=== PATIENT | male | born 1980 | race Caucasian/White ===

== ENCOUNTER 2018-11-02 15:51 | Outpatient (CLI) | payer OTHER ==
[2018-11-02] MEDS ORDERED: None per pt (16:07)
== END 2018-11-02 23:59 | disposition home or self-care (01) ==
LOC: STAR 15:51
PROVIDERS: ATTEND Orthopaedic Surgery
DX: Z02.9 Encounter for administrative examinations, unspecified (principal)

== ENCOUNTER 2018-11-08 12:28 | Day surgery (SDC) | payer OTHER ==
[2018-11-02 15:54] VITALS: BP 126/83
[~2018-11-08] VITALS: Ht 182.9 cm; Wt 77.9 kg
[~2018-11-08 12:28] MED LIST: LIDOCAINE 1%-EPI 1:100K, 20ML ONE; None per pt; ROPIvacaine/PF 0.5%, 30 ML ONE
[2018-11-08] MEDS ORDERED: TRIAMCINOLONE ACETONIDE 40 MG/ML, 1ML ONE (12:56)
[2018-11-08] MEDS ORDERED: LACTATED RINGERS 1,000 ML IV SCH (12:56)
[2018-11-08] MEDS ORDERED: MIDAZOLAM 1 MG/ML, 2ML ONE (13:18)
[2018-11-08] MEDS ORDERED: FENTANYL PF 250 MCG/5ML ONE (13:19)
[2018-11-08] MEDS ORDERED: ACETAMINOPHEN 500 MG TABLET PO ONE (13:30)
[2018-11-08] MEDS ORDERED: GABAPENTIN 300 MG CAPSULE PO ONE (13:30)
[2018-11-08] MEDS ORDERED: PROMETHAZINE 25 MG/ML, 1ML IV PRN (14:00)
[2018-11-08] MEDS ORDERED: MEPERIDINE/PF 25MG/0.5ML IVPush PRN (14:00)
[2018-11-08] MEDS ORDERED: OXYcodone 5 MG/5 ML ORAL.SOL UDC PO PRN (14:00)
[2018-11-08] MEDS ORDERED: ONDANSETRON ODT 8 MG PO PRN (14:00)
[2018-11-08] MEDS ORDERED: LORazepam 2 MG/ML, 1ML IVPush PRN (14:00)
[2018-11-08] MEDS ORDERED: ONDANSETRON 2MG/ML, 2ML IV PRN (14:00)
[2018-11-08] MEDS ORDERED: PROPOFOL 10 MG/ML, 20ML ONE (14:22)
[2018-11-08] MEDS ORDERED: CEFAZOLIN 1,000 MG ONE (14:22)
[2018-11-08] MEDS ORDERED: DEXAMETHASONE 4 MG/ML, 1ML ONE (14:22)
[2018-11-08] MEDS ORDERED: ONDANSETRON 2MG/ML, 2ML ONE (14:22)
[2018-11-08] MEDS ORDERED: OXYcodone 5 MG/5 ML ORAL.SOL UDC ONE (14:40)
[2018-11-08] MEDS: FENTANYL PF 100 MCG/2ML IV PRN ×2 (14:41→14:48)
[2018-11-08] MEDS ORDERED: FENTANYL PF 100 MCG/2ML ONE (14:46)
[2018-11-08] MEDS: HYDROmorphone 2 MG/ML, 1ML IVPush PRN ×2 (15:00→15:05)
[2018-11-08] MEDS ORDERED: HYDROmorphone 2 MG/ML, 1ML ONE (15:00)
[2018-11-08] MEDS ORDERED: MEPERIDINE/PF 25MG/ML,1ML ONE (15:05)
== END 2018-11-08 16:44 | disposition home or self-care (01) ==
LOC: OUT 12:28 → UNDOADMOB 15:55 → ORIP 15:55 → OUT 16:44
PROVIDERS: ATTEND Orthopaedic Surgery
DX: S83.281A Other tear of lateral meniscus, current injury, right knee, initial encounter (principal); M65.861 Other synovitis and tenosynovitis, right lower leg; M24.574 Contracture, right foot; M79.4 Hypertrophy of (infrapatellar) fat pad; M94.261 Chondromalacia, right knee; F41.9 Anxiety disorder, unspecified; F32.9 Major depressive disorder, single episode, unspecified; X58.XXXA Exposure to other specified factors, initial encounter; Y93.89 Activity, other specified; Y92.89 Other specified places as the place of occurrence of the external cause; Y99.8 Other external cause status
CPT/HCPCS: 29876; 29881; 29884; J0690; J1100; J1170; J2175; J2250; J2405; J2704; J2795; J3010; J3490; J7120; J3301